=== PATIENT | male | born 1985 | race Caucasian/White ===

== ENCOUNTER 2021-07-15 10:11 | Day surgery (SDC) | payer BC ==
[~2021-07-15 10:11] MED LIST: Ketamine 500 mg/10 ML MDV ONE; Lactated Ringers 1,000 ML IV SCH; Midazolam 1 MG/ML 2 ML SDV ONE; Propofol 200 MG/20 ML SDV ONE; Sodium Chloride 0.9% 10 ML Syringe FLUSH PRN
[2021-07-15] MEDS ORDERED: Glycopyrrolate 0.2 MG/ML SDV ONE (11:15)
[2021-07-15] MEDS ORDERED: Midazolam 1 MG/ML 2 ML SDV ONE (11:15)
[2021-07-15] MEDS ORDERED: Propofol 200 MG/20 ML SDV ONE (11:15)
[2021-07-15] MEDS ORDERED: Lidocaine 2% 5 ML SDV ONE (11:15)
[2021-07-15] MEDS ORDERED: Ketamine 500 mg/10 ML MDV ONE (11:15)
== END 2021-07-15 12:40 | disposition home or self-care (01) ==
LOC: LL.SDS 10:11
PROVIDERS: ATTEND Surgery
DX: K22.2 Esophageal obstruction (principal); K20.90 Esophagitis, unspecified without bleeding; K44.9 Diaphragmatic hernia without obstruction or gangrene; Z88.8 Allergy status to other drugs, medicaments and biological substances
CPT/HCPCS: 00731; J2250; J2704; J3490; J7120

== ENCOUNTER 2024-02-13 21:00 | Emergency (ER) | payer OTHER, BC ==
[2024-02-13] MEDS: Albuterol/Ipratropium 3.0-0.5 MG/3 ML Neb Soln NEB ONE (21:10)
[2024-02-13] MEDS ORDERED: predniSONE 20 MG Tab ONE (21:18)
[2024-02-13] MEDS: predniSONE 20 MG Tab PO ONE (21:19)
== END 2024-02-13 21:49 | disposition home or self-care (01) ==
LOC: LL.ED 21:00
DX: R05.9 Cough, unspecified (principal); R51.9 Headache, unspecified; X08.8XXA Exposure to other specified smoke, fire and flames, initial encounter; Z79.899 Other long term (current) drug therapy; Z88.1 Allergy status to other antibiotic agents
CPT/HCPCS: 71046; 94640; 99284; J7512; J7620-GY